=== PATIENT | female | born 1955 | race Caucasian/White ===

== ENCOUNTER 2022-06-17 00:40 | Emergency (ER) | payer MEDICAID ==
[~2022-06-17] VITALS: Ht 157.5 cm; Wt 112.0 kg
[2022-06-17 00:45] VITALS: BP 171/100
--- NOTE | 2022-06-17 00:45 | NUR ---
biba taken to bed #7
--- NOTE | 2022-06-17 01:28 | NUR ---
pt found asleep and mouth breathing, o2 dropped to 82%. pt placed on 2l via nc o2 maintained at 94%
--- NOTE | 2022-06-17 01:33 | NUR ---
Patient being evaluated by physician at bedside.
[2022-06-17 01:57] LABS: BASOPHILS # (AUTO) 0.1 K/uL (0.00-0.22); EOSINOPHILS # (AUTO) 0.2 K/uL (0-0.4); EOSINOPHILS % (AUTO) 2.6 % (0.0-4.0); HEMATOCRIT 29.7 % (36-48); HEMOGLOBIN 9.9 g/dL (12.0-16.0); LYMPHOCYTES # (AUTO) 2.4 K/uL (2.5-16.5); LYMPHOCYTES % (AUTO) 28.2 % (20.5-51.1); MEAN CORPUSCULAR HEMOGLOBIN 28 pg (27-31); MEAN CORPUSCULAR HGB CONC 33 g/dL (33-37); MEAN CORPUSCULAR VOLUME 83.8 fL (80-94); MONOCYTES # (AUTO) 0.6 K/uL (0.8-1.0); MONOCYTES % (AUTO) 6.4 % (1.7-9.3); NEUTROPHILS # (AUTO) 5.3 K/uL (1.8-7.7); NEUTROPHILS % (AUTO) 61.8 % (42.2-75.2); PLATELET COUNT (AUTO) 227 K/uL (140-450); RED BLOOD CELL COUNT(AUTO) 3.55 MIL/uL (4.20-5.40); RED CELL DISTRIBUTION WIDTH 14.8 % (11.6-13.7); WHITE BLOOD COUNT (AUTO) 8.6 K/uL (4.8-10.8)
--- NOTE | 2022-06-17 02:14 | NUR ---
66YR OLD FEMALE BIB EMS C/O CP AND SOB XTODAY. PT IS A&OX4 STATES CP STARTED EARILER TODAY PAIN IS SHARP WITH PRESSURE 10/10 PAIN LEVEL. NO DISTRESS NOTED. SPO2 98% 2L VIA NC. HOB ELEVATED. SKIN IS WARM AND DRY AND INTACT. L LEG SWOLLEN HOT TO TOUCH PAINFUL 10/10. STATES SWELLING X5DAYS. +PEDIAL PULSES. DENIES FEVER COUGH V/D. PT ON BEDSIDE PARALEGALS. BED AT LOWEST POSITION. KETOROLAC MEPERIDINE
[2022-06-17 02:33] LABS: CARBON DIOXIDE 26.3 mmol/L (21-32); TOTAL BILIRUBIN 0.2 mg/dL (0.0-1.0)
[2022-06-17 02:34] LABS: ALBUMIN 2.8 g/dL (3.4-5.0)
--- NOTE | 2022-06-17 02:41 | NUR ---
ULTRASOUND AT BEDSIDE
[2022-06-17 02:57] LABS: ANION GAP 13.3 (8-16); POTASSIUM 4.6 mmol/L (3.5-5.1)
[2022-06-17] MEDS ORDERED: LORazepam 0.5 MG TAB PO ONE (03:05)
[2022-06-17] MEDS ORDERED: CRUSHER, PILL MC ONE (03:11)
--- NOTE | 2022-06-17 03:26 | NUR ---
PT EATING AT BEDSIDE. IS TEARFUL AND ANXIOUS . MEDS GIVEN WILL CONTINUE TO MONITOR PT AND OFFER SUPPORT WHEN NEEDED
[2022-06-17] MEDS ORDERED: CEPH500C16 PO (04:45)
[2022-06-17] MEDS ORDERED: FUROSEMIDE 20 MG/2 ML VIAL IVP ONE (04:45)
[2022-06-17] MEDS ORDERED: cefTRIAXone 1,000 MG VIAL ONE (05:04)
--- NOTE | 2022-06-17 05:07 | NUR ---
PATIENT REFUSES TO BE ADMITTED DR ERICKSON AWARE.
[2022-06-17 05:15] VITALS: BP 168/75
--- NOTE | 2022-06-17 05:39 | NUR ---
Patient does not wish to proceed with medical care recommended by DR ERICKSON. Patient given information related to possible complications, up to and including , which could occur as a result of leaving hospital at this time. Patient verbalizes understanding of risks involved leaving against medical advice. Patient has signed AMA form.
--- NOTE | 2022-06-17 05:55 | NUR ---
The patient's care was reviewed and supervised by Sabi Hernandez RN.
== END 2022-06-17 05:39 | disposition left against medical advice (07) ==
LOC: MED 00:40
DX: L03.116 Cellulitis of left lower limb (principal); R60.9 Edema, unspecified; N17.9 Acute kidney failure, unspecified; E11.9 Type 2 diabetes mellitus without complications
CPT/HCPCS: 36415; 71045; 80053; 83880; 84484; 85025; 93005; 93971; 96365; 96375; 99285; J0696; J1940; Q0092

== ENCOUNTER 2022-06-23 05:45 | Emergency (ER) | payer MEDICAID ==
[~2022-06-23] VITALS: Ht 157.5 cm; Wt 113.4 kg
[~2022-06-23 05:45] MED LIST: CEPH500C16 PO
[2022-06-23 05:51] VITALS: BP 188/91
--- NOTE | 2022-06-23 05:56 | NUR ---
BIB WC C/O ANXIETY THAT STARTED 20 MIN HEAD OF CYTOGENETICS. +CP, SOB. PT STATES SHE WAS TRYING TO GO TO SLEEP. PT REPORTS BEING STRESSED OUT RECENTLY. NO MEDS TAKEN HEAD OF CYTOGENETICS PMH HTN, DM, SLEEP APNEA
[2022-06-23] MEDS ORDERED: LORazepam 1 MG TAB PO ONE (06:15)
--- NOTE | 2022-06-23 06:54 | NUR ---
Patient is resting comfortably in bed, A/Ox4, no s/s of distress.
--- NOTE | 2022-06-23 07:03 | NUR ---
ER Physician Dr. Myers at bedside with patient.
--- NOTE | 2022-06-23 07:13 | NUR ---
Change of shift report given to AM Shift Nurses Mary RN and Raciel RN. AM Shift Nurses Mary RN and Raciel RN verbalized understanding of report, no further questions.
--- NOTE | 2022-06-23 07:20 | NUR ---
RECEIVED REPORT FROM KATRINA CEDENO. ASSUMED CARE AT THIS TIME. PT RESTING IN BED WITH EYES CLOSED, ON BEDSIDE MONITOR. ALL NEEDS MET AT THIS TIME.
--- NOTE | 2022-06-23 07:33 | NUR ---
PT AMBULATED TO RESTROOM WITH STEADY GAIT.
[2022-06-23] MEDS ORDERED: ATA10 PO ×2 (08:45→10:08)
--- NOTE | 2022-06-23 09:03 | NUR ---
PT'S BP 214/107. DR. MARTINEZ MADE AWARE. AWAITING NEW ORDERS AT THIS TIME.
[2022-06-23] MEDS ORDERED: hydrALAZINE 20 MG/ML VIAL IM ONE (09:05)
--- NOTE | 2022-06-23 09:58 | NUR ---
RE-EVALUATED PT'S BP, NOW IS 215/104. DR. MARTINEZ MADE AWARE. NO NEW ORDERS. STATED PT OK TO BE D/C.
--- NOTE | 2022-06-23 10:04 | NUR ---
Patient discharged with v/s stable. Written and verbal after care instructions ABOUT PALPITATIONS given and explained. Patient alert, oriented and verbalized understanding of instructions. Wheel Chair Assisted with to car. All questions addressed prior to discharge. ID band removed. Patient advised to follow up with PMD. Rx of ATARAX HCL given. Patient educated on indication of medication including possible reaction and side effects. Opportunity to ask questions provided and answered.
[2022-06-23 10:06] VITALS: BP 215/104
== END 2022-06-23 10:06 | disposition home or self-care (01) ==
LOC: MED 05:45
DX: F41.9 Anxiety disorder, unspecified (principal); E11.22 Type 2 diabetes mellitus with diabetic chronic kidney disease; I12.9 Hypertensive chronic kidney disease with stage 1 through stage 4 chronic kidney disease, or unspecified chronic kidney disease; N18.9 Chronic kidney disease, unspecified; Z79.899 Other long term (current) drug therapy; Z88.8 Allergy status to other drugs, medicaments and biological substances
CPT/HCPCS: 71045; 93005; 96372; 99285; J0360; Q0092

== ENCOUNTER 2022-07-02 00:06 | Emergency (ER) | payer MEDICAID ==
[~2022-07-02] VITALS: Ht 158.8 cm; Wt 115.9 kg
[~2022-07-02 00:06] MED LIST changes: +ATA10 PO
[2022-07-02 01:01] VITALS: BP 162/99
--- NOTE | 2022-07-02 01:16 | NUR ---
PATIENT TRANSPORTED BACK TO [facility] IN WHEELCHAIR
--- NOTE | 2022-07-02 02:29 | NUR ---
PT TO BED 12
--- NOTE | 2022-07-02 02:30 | NUR ---
PT WHEELCHAIR TO ED 12, PT C/O SEVERE THROAT PAIN, PT STATES SHE HAS NOT BEEN ABLE TO EAT BECAUSE OF TH EPAIN, PT PLACED ON THE MONITOR.
[2022-07-02] MEDS ORDERED: diazePAM 5 MG TAB PO ONE (02:55)
[2022-07-02] MEDS ORDERED: predniSONE 20 MG TAB PO ONE (02:55)
--- NOTE | 2022-07-02 04:30 | NUR ---
PT ASLEEP IN [place], PT STATES SHE IS VERY TIRED. STATES PAIN HAS REDUCE IN HER THROAT.
[2022-07-02] MEDS ORDERED: NAPR-54 PO (04:42)
--- NOTE | 2022-07-02 06:45 | NUR ---
PT AMBULATED TO RESTROOM WITH NO ASSISTANCE.
[2022-07-02 06:57] VITALS: BP 150/70
--- NOTE | 2022-07-02 06:59 | NUR ---
Patient discharged with v/s stable. Written and verbal after care instructions given and explained. Patient alert, oriented and verbalized understanding of instructions. Ambulatory with steady gait. All questions addressed prior to discharge. ID band removed. Patient advised to follow up with PMD. Rx SENT TO PHARMACY. Patient educated on indication of medication including possible reaction and side effects. Opportunity to ask questions provided and answered.
[2022-07-03] MEDS ORDERED: ACET-8386 PO (05:51)
== END 2022-07-02 06:56 | disposition home or self-care (01) ==
LOC: MED 00:06
DX: J02.9 Acute pharyngitis, unspecified (principal); R11.10 Vomiting, unspecified; E11.9 Type 2 diabetes mellitus without complications; I10 Essential (primary) hypertension; Z79.899 Other long term (current) drug therapy; Z88.8 Allergy status to other drugs, medicaments and biological substances
CPT/HCPCS: 70360; 82948; 99283; J7512; 99284

== ENCOUNTER 2022-07-03 00:01 | Emergency (ER) | payer MEDICAID ==
[~2022-07-03] VITALS: Ht 157.5 cm; Wt 115.7 kg
[~2022-07-03 00:01] MED LIST changes: +NAPR-54 PO
[2022-07-03 00:16] VITALS: BP 165/97
--- NOTE | 2022-07-03 02:22 | NUR ---
Patient resting comfortably in bed 11, snoring. Patient A/Ox4, chest rise and fall symmetrical, no c/o pain or s/s of discomfort. Patient on monitor.
[2022-07-03 03:10] LABS: ANION GAP 13.7 (8-16); CARBON DIOXIDE 26.5 mmol/L (21-32); CREATININE 2.3 mg/dL (0.6-1.3); POTASSIUM 4.2 mmol/L (3.5-5.1)
[2022-07-03 03:35] LABS: BARBITURATE, URINE NEGATIVE ng/ml (NEG <=200); BENZODIAZEPINE, URINE POSITIVE ng/mL (NEG <=200); CANNABINOID, URINE NEGATIVE ng/mL (NEG <=50); COCAINE, URINE NEGATIVE ng/mL (NEG <=300); OPIATE, URINE NEGATIVE ng/mL (NEG <=2000); PHENCYCLIDINE SCREEN,URINE NEGATIVE ng/mL (NEG <=25)
--- NOTE | 2022-07-03 03:43 | NUR ---
PT TAKEN TO CT
--- NOTE | 2022-07-03 03:52 | NUR ---
PT RETURN FROM CT
--- NOTE | 2022-07-03 04:00 | NUR ---
Patient resting comfortably in bed 11, snoring. Patient A/Ox4, chest rise and fall symmetrical, no c/o pain or s/s of discomfort. Patient on monitor.
[2022-07-03] MEDS ORDERED: ACET-8386 PO (05:51)
--- NOTE | 2022-07-03 06:02 | NUR ---
Patient resting comfortably in bed 11, snoring. Patient A/Ox4, chest rise and fall symmetrical, no c/o pain or s/s of discomfort. Patient on monitor.
[2022-07-03 06:58] VITALS: BP 138/81
== END 2022-07-03 06:58 | disposition home or self-care (01) ==
LOC: MED 00:01
DX: J02.9 Acute pharyngitis, unspecified (principal); E11.9 Type 2 diabetes mellitus without complications; I10 Essential (primary) hypertension; Z79.4 Long term (current) use of insulin; Z79.899 Other long term (current) drug therapy; Z79.1 Long term (current) use of non-steroidal anti-inflammatories (NSAID)
CPT/HCPCS: 36415; 70490; 80048; 80305; 99284

== ENCOUNTER 2022-08-22 01:20 | Emergency (ER) | payer OTHER, MEDICAID ==
[~2022-08-22] VITALS: Ht 157.5 cm; Wt 104.3 kg
[2022-08-22 01:20] VITALS: BP 175/100
[~2022-08-22 01:20] MED LIST changes: +ACET-8905 PO
[2022-08-22] MEDS ORDERED: LORazepam 1 MG TAB PO ONE (02:40)
--- NOTE | 2022-08-22 02:55 | NUR ---
PT TAKEN TO RADIOLOGY
[2022-08-22 03:03] LABS: BASOPHILS # (AUTO) 0.1 K/uL (0.00-0.22); BASOPHILS % (AUTO) 1.1 % (0.0-2.0); EOSINOPHILS # (AUTO) 0.2 K/uL (0-0.4); EOSINOPHILS % (AUTO) 2.5 % (0.0-4.0); HEMATOCRIT 32.1 % (36-48); HEMOGLOBIN 10.6 g/dL (12.0-16.0); LYMPHOCYTES % (AUTO) 33.9 % (20.5-51.1); MEAN CORPUSCULAR HEMOGLOBIN 28 pg (27-31); MEAN CORPUSCULAR HGB CONC 33 g/dL (33-37); MEAN CORPUSCULAR VOLUME 85.1 fL (80-94); MONOCYTES # (AUTO) 0.6 K/uL (0.8-1.0); MONOCYTES % (AUTO) 6.2 % (1.7-9.3); NEUTROPHILS % (AUTO) 56.3 % (42.2-75.2); PLATELET COUNT (AUTO) 300 K/uL (140-450); RED BLOOD CELL COUNT(AUTO) 3.77 MIL/uL (4.20-5.40); RED CELL DISTRIBUTION WIDTH 14.3 % (11.6-13.7); WHITE BLOOD COUNT (AUTO) 8.9 K/uL (4.8-10.8)
--- NOTE | 2022-08-22 03:03 | NUR ---
PT RETURN FROM RADIOLOGY TO ER BED 8
--- NOTE | 2022-08-22 03:03 | NUR ---
pt alert oriented x 4 whose came in with anxiety. unsteady
[2022-08-22 03:19] LABS: ALBUMIN 2.9 g/dL (3.4-5.0); ANION GAP 9.8 (8-16); ASPARTATE AMINOTRANSFERASE 13 U/L (15-37); CARBON DIOXIDE 28.9 mmol/L (21-32); CHLORIDE 100 mmol/L (98-107); CREATININE 2.4 mg/dL (0.6-1.3); GFR ARICAN-AMERICAN 26 mL/min (>90); GLUCOSE 335 mg/dL (74-106); POTASSIUM 4.7 mmol/L (3.5-5.1); SODIUM SERUM 134 mmol/L (136-145); TOTAL BILIRUBIN 0.2 mg/dL (0.0-1.0); UREA NITROGEN, BLOOD 43 mg/dL (7-18)
[2022-08-22 06:20] VITALS: BP 180/87
--- NOTE | 2022-08-22 06:21 | NUR ---
Dr. Loera examining patient.
--- NOTE | 2022-08-22 06:25 | NUR ---
Patient discharged with v/s stable. Written and verbal after care instructions given and explained. Patient verbalized understanding. Ambulatory with steady gait. All questions addressed prior to discharge. Advised to follow up with PMD.
== END 2022-08-22 06:25 | disposition home or self-care (01) ==
LOC: MED 01:20
DX: F41.9 Anxiety disorder, unspecified (principal); I10 Essential (primary) hypertension; E11.9 Type 2 diabetes mellitus without complications; Z79.4 Long term (current) use of insulin; Z79.899 Other long term (current) drug therapy
CPT/HCPCS: 36415; 71045; 80053; 84484; 85025; 93005; 99285

== ENCOUNTER 2022-11-01 03:23 | Emergency (ER) | payer BC, MEDICAID ==
[~2022-11-01] VITALS: Ht 157.5 cm; Wt 104.3 kg
--- NOTE | 2022-11-01 03:28 | NUR ---
[facility] B[facility] TO BED #3
[2022-11-01 03:29] VITALS: BP 171/90
--- NOTE | 2022-11-01 03:58 | NUR ---
pt is here for abd pain 02/11 and short of breath. Pt is alert and oriented x 4. Room air and ambulatory.
[2022-11-01] MEDS ORDERED: HYDROcodone/APAP 5/325 MG 1 TAB TAB PO ONE (04:00)
[2022-11-01] MEDS ORDERED: ONDANSETRON 4 MG ODT PO ONE (04:00)
[2022-11-01] MEDS ORDERED: ALBUTEROL 0.083% 2.5 MG/3 ML NEBU INH ONE (04:00)
--- NOTE | 2022-11-01 04:30 | NUR ---
0430 pt asking for snack
--- NOTE | 2022-11-01 04:30 | NUR ---
pt went to the rest room
[2022-11-01] MEDS ORDERED: ONDA-188 PO (04:38)
[2022-11-01] MEDS ORDERED: ALBU6.7H6 IH (04:38)
[2022-11-01] MEDS ORDERED: FAMO-90 PO (04:38)
[2022-11-01] MEDS ORDERED: FLUCONAZOLE 100 MG TAB PO ONE (04:40)
--- NOTE | 2022-11-01 04:45 | NUR ---
pt reported to the nurse that she had itchiness in her vagina and md notified.
[2022-11-01 04:52] LABS: APPEARANCE,URINE CLEAR (CLEAR); BILIRUBIN,URINE NEGATIVE (NEGATIVE); BLOOD, URINE 1+ (NEGATIVE); COLOR,URINE YELLOW (YELLOW); LEUKOCYTE ESTERASE ,URINE NEGATIVE (NEGATIVE); NITRITE, URINE NEGATIVE (NEGATIVE); UGLUCOSE 3+ (NEGATIVE)
[2022-11-01 04:55] LABS: RBC,URINE 0-5 /HPF (0-5); WBC,URINE 20-60 /HPF (0-5)
[2022-11-01] MEDS ORDERED: CEPH-588 PO (05:08)
[2022-11-01 05:24] LABS: BASOPHILS % (AUTO) 0.4 % (0.0-2.0); EOSINOPHILS # (AUTO) 0.2 K/uL (0-0.4); EOSINOPHILS % (AUTO) 1.9 % (0.0-4.0); HEMATOCRIT 32.3 % (36-48); HEMOGLOBIN 10.5 g/dL (12.0-16.0); LYMPHOCYTES # (AUTO) 3.3 K/uL (2.5-16.5); LYMPHOCYTES % (AUTO) 36.6 % (20.5-51.1); MEAN CORPUSCULAR HEMOGLOBIN 27 pg (27-31); MEAN CORPUSCULAR HGB CONC 33 g/dL (33-37); MEAN CORPUSCULAR VOLUME 82.9 fL (80-94); MONOCYTES # (AUTO) 0.6 K/uL (0.8-1.0); MONOCYTES % (AUTO) 6.8 % (1.7-9.3); NEUTROPHILS % (AUTO) 54.3 % (42.2-75.2); PLATELET COUNT (AUTO) 286 K/uL (140-450); RED CELL DISTRIBUTION WIDTH 14.9 % (11.6-13.7); WHITE BLOOD COUNT (AUTO) 9.1 K/uL (4.8-10.8)
[2022-11-01 05:39] LABS: ALBUMIN 3.5 g/dL (3.4-5.0); ANION GAP 15.5 (8-16); CARBON DIOXIDE 23.8 mmol/L (21-32); CREATININE 2.7 mg/dL (0.6-1.3); POTASSIUM 4.3 mmol/L (3.5-5.1); TOTAL BILIRUBIN 0.3 mg/dL (0.0-1.0)
[2022-11-01] MEDS ORDERED: HYDROXYZINE HYDROCHLORIDE 25 MG TAB PO ONE (06:40)
[2022-11-01 06:49] VITALS: BP 165/79
--- NOTE | 2022-11-01 07:01 | NUR ---
Patient discharged with v/s stable. Written and verbal after care instructions given and explained. Patient verbalized understanding. Ambulatory with steady gait. All questions addressed prior to discharge. Advised to follow up with PMD. pt left with her belongings
== END 2022-11-01 06:49 | disposition home or self-care (01) ==
LOC: MED 03:23
DX: N39.0 Urinary tract infection, site not specified (principal); J20.8 Acute bronchitis due to other specified organisms; E11.9 Type 2 diabetes mellitus without complications; I10 Essential (primary) hypertension; Z79.1 Long term (current) use of non-steroidal anti-inflammatories (NSAID); Z88.8 Allergy status to other drugs, medicaments and biological substances; Z79.4 Long term (current) use of insulin; Z79.899 Other long term (current) drug therapy
CPT/HCPCS: 36415; 71045; 74018; 80053; 81001; 85025; 87086; 94640; 99284; J7613; Q0162

== ENCOUNTER 2022-11-29 18:21 | Emergency (ER) | payer BC, MEDICAID ==
[~2022-11-29] VITALS: Ht 157.5 cm; Wt 110.7 kg
[~2022-11-29 18:21] MED LIST changes: +ALBU6.7H6 IH; +CEPH-588 PO; +FAMO-90 PO; +ONDA-188 PO
[2022-11-29 18:57] VITALS: BP 179/104
--- NOTE | 2022-11-29 19:45 | NUR ---
swabbed patient and sent swabs to lab
[2022-11-29] MEDS ORDERED: CHLO-1090 PO ×2 (21:16→23:54)
[2022-11-29] MEDS ORDERED: DOXY25TA42 PO ×2 (21:16→23:54)
[2022-11-29] MEDS ORDERED: MELA1TAB32 PO ×2 (21:16→23:54)
[2022-11-29 21:56] VITALS: BP 179/104
--- NOTE | 2022-11-29 21:56 | NUR ---
Patient discharged with v/s stable. Written and verbal after care instructions given and explained. Patient alert, oriented and verbalized understanding of instructions. Ambulatory with to car. All questions addressed prior to discharge. ID band removed. Patient advised to follow up with PMD. Rx of CORICIDIN, UNISOM, MELATONIN given. Patient educated on indication of medication including possible reaction and side effects. Opportunity to ask questions provided and answered.
== END 2022-11-29 21:56 | disposition home or self-care (01) ==
LOC: MED 18:21
DX: J06.9 Acute upper respiratory infection, unspecified (principal); B34.9 Viral infection, unspecified; F41.9 Anxiety disorder, unspecified; G47.00 Insomnia, unspecified; Z20.822 Contact with and (suspected) exposure to COVID-19; E11.9 Type 2 diabetes mellitus without complications; I10 Essential (primary) hypertension; Z87.448 Personal history of other diseases of urinary system; Z79.899 Other long term (current) drug therapy; Z79.2 Long term (current) use of antibiotics; Z79.891 Long term (current) use of opiate analgesic; Z79.1 Long term (current) use of non-steroidal anti-inflammatories (NSAID); Z88.6 Allergy status to analgesic agent; Z88.5 Allergy status to narcotic agent
CPT/HCPCS: 71045; 99284